=== PATIENT | female | born 1980 | race Two or more races ===

== ENCOUNTER 2018-08-07 21:20 | Emergency (ER) | payer MEDICAID, OTHER ==
[~2018-08-07] VITALS: Ht 162.6 cm; Wt 78.9 kg
[2018-08-07 22:20] LABS: Basophils # (auto) 0 uL; Basophils % (auto) 0.5 % (0.0-2.0); Eosinophils # (auto) 0.2 uL; Eosinophils % (auto) 1.8 % (0.0-7.0); Hematocrit 35.5 % (36.0-46.0); Hemoglobin 11.9 g/dL (12.2-16.2); Lymphocytes # (auto) 2.8 uL; Mean Corpuscular Hemoglobin 27.4 pg (28.0-32.0); Mean Corpuscular Hgb Conc. 33.5 g/dL (32.0-36.0); Mean Corpuscular Volume 81.8 fL (80.0-100.0); Monocytes # (auto) 0.7 uL; Monocytes % (auto) 7.8 % (0.0-12.0); Neutrophils % (auto) 57.9 % (37.0-80.0); Nucleated Red Blood Cells % 0.1 %; Platelet Count (auto) 196 10^3/uL (140-450); Red Blood Cells 4.34 10^6/uL (4.0-5.20); Red Cell Distribution Width 15.4 % (11.8-14.3); White Blood Cell 8.7 10^3/uL (4.4-10.8)
[2018-08-07 22:44] LABS: Albumin 3.6 g/dL (3.4-5.0); BUN/Creatinine Ratio 15.4; Bilirubin, Total 0.2 mg/dL (0.2-1.0); Calcium 8.7 mg/dL (8.5-10.1); Total Protein 7.6 g/dL (6.4-8.2)
[2018-08-08 00:07] LABS: Urine Bacteria FEW /hpf (None Seen); Urine Blood Negative /uL (Negative); Urine Specific Gravity 1.012 (1.001-1.035); Urine WBC <1 /hpf (0 - 5)
[2018-08-08 01:12] VITALS: BP 105/70
== END 2018-08-08 02:18 | disposition home or self-care (01) ==
LOC: ER 21:25
DX: N20.0 Calculus of kidney (principal); N39.0 Urinary tract infection, site not specified; Z88.0 Allergy status to penicillin
CPT/HCPCS: 36415; 74176; 80053; 81001; 82150; 83690; 84702; 85025

== ENCOUNTER 2019-04-09 19:30 | Emergency (ER) | payer MEDICAID ==
[~2019-04-09] VITALS: Ht 162.6 cm; Wt 75.3 kg
[2019-04-09 20:12] LABS: Basophils # (auto) 0 uL; Eosinophils # (auto) 0.1 uL; Eosinophils % (auto) 0.7 % (0.0-7.0); Hematocrit 37.9 % (36.0-46.0); Hemoglobin 12.3 g/dL (12.2-16.2); Lymphocytes # (auto) 0.8 uL; Neutrophils # (auto) 8.1 uL; Neutrophils % (auto) 85.6 % (37.0-80.0)
[2019-04-09 20:13] LABS: Basophils % (auto) 0.3 % (0.0-2.0); Lymphocytes % (auto) 8.7 % (10.0-50.0); Mean Corpuscular Hgb Conc. 32.3 g/dL (32.0-36.0); Mean Corpuscular Volume 80.5 fL (80.0-100.0); Monocytes # (auto) 0.4 uL; Monocytes % (auto) 4.7 % (0.0-12.0); Nucleated Red Blood Cells % 0.1 %; Platelet Count (auto) 194 10^3/uL (140-450); Red Blood Cells 4.71 10^6/uL (4.0-5.20); Red Cell Distribution Width 15.5 % (11.8-14.3); White Blood Cell 9.4 10^3/uL (4.4-10.8)
[2019-04-09 20:25] LABS: Alanine Aminotransferase 18 U/L (13-56); Albumin 3.6 g/dL (3.4-5.0); Anion Gap 6 (5-15); Aspartate Aminotransferase 8 U/L (15-37); Blood Urea Nitrogen 10 mg/dL (7-18); Calcium 7.9 mg/dL (8.5-10.1); Carbon Dioxide 26 mmol/L (21-32); Chloride 106 mmol/L (98-107); Glucose 102 mg/dL (74-106); Magnesium 2.2 mg/dL (1.6-2.6); Potassium 3.6 mmol/L (3.5-5.1); Sodium 138 mmol/L (136-145)
[2019-04-09 20:27] LABS: INR < 0.93 (0.9-1.15); Partial Thromboplastin Time 24.6 sec (23.64-32.05)
[2019-04-09 20:30] LABS: Alkaline Phosphatase 86 U/L (45-117); BUN/Creatinine Ratio 16.1; Bilirubin, Total 0.3 mg/dL (0.2-1.0); GFR African American 139 mL/min; GFR Non-African American 114 mL/min; Total Protein 7.5 g/dL (6.4-8.2)
[2019-04-09 22:09] LABS: Amylase 42 U/L (25-115); Lipase 74 U/L (73-393)
[2019-04-09] MEDS ORDERED: IOHEXOL 300 MG/ML 100ML BOTTLE IJ ONE (22:28)
[2019-04-09 23:43] VITALS: BP 97/64
== END 2019-04-10 00:42 | disposition home or self-care (01) ==
LOC: ER 19:30 → EDBD 19:30 → ER 04-10 00:42
DX: R55 Syncope and collapse (principal); R10.9 Unspecified abdominal pain; R53.1 Weakness; R07.9 Chest pain, unspecified; Z88.0 Allergy status to penicillin
CPT/HCPCS: 36415; 70450; 71045; 74177; 80053; 81002; 81025; 82150; 83690; 83735; 83880; 84443; 84484; 85025; 85610; 85730; 93005; 94761; 99284; Q9967

== ENCOUNTER 2021-06-27 23:47 | Emergency (ER) | payer MEDICAID ==
[~2021-06-27] VITALS: Ht 160 cm; Wt 86.2 kg
[2021-06-27 23:47] VITALS: BP 100/49
== END 2021-06-28 03:39 | disposition home or self-care (01) ==
LOC: ER 23:47
DX: R06.02 Shortness of breath (principal); R51.9 Headache, unspecified; E66.9 Obesity, unspecified; J45.909 Unspecified asthma, uncomplicated; Z68.33 Body mass index [BMI] 33.0-33.9, adult; Z86.16 Personal history of COVID-19; Z20.822 Contact with and (suspected) exposure to COVID-19
CPT/HCPCS: 36415; 71045; 87426

== ENCOUNTER 2021-07-11 01:55 | Emergency (ER) | payer MEDICAID ==
[~2021-07-11] VITALS: Ht 160 cm; Wt 86.2 kg
[2021-07-11 01:58] VITALS: BP 107/46
== END 2021-07-11 04:49 | disposition home or self-care (01) ==
LOC: ER 01:55
DX: M79.18 Myalgia, other site (principal); R06.02 Shortness of breath; G44.209 Tension-type headache, unspecified, not intractable; E66.9 Obesity, unspecified; J45.909 Unspecified asthma, uncomplicated; Z68.33 Body mass index [BMI] 33.0-33.9, adult; Z86.16 Personal history of COVID-19; Z20.822 Contact with and (suspected) exposure to COVID-19
CPT/HCPCS: 36415; 71045; 87426; 87804